=== PATIENT | male | born 1960 | race Caucasian/White ===

== ENCOUNTER 2024-06-08 08:44 | Emergency (ER) | payer BC, OTHER ==
[~2024-06-08] VITALS: Ht 175.3 cm; Wt 94.1 kg
[2024-06-08] MEDS ORDERED: TRIMETHOPRIM/SULFAMETHOXAZOLE 1 EA TAB PO ONE (09:30)
[2024-06-08] MEDS ORDERED: DOXYCYCLINE HYCLATE 100 MG CAP PO ONE (09:30)
[2024-06-08] MEDS ORDERED: DIPHTH,PERTUSS(ACELL),TET VAC 0.5 ML SYRINGE IM ONE (09:30)
[2024-06-08] MEDS ORDERED: BREYNA 80-4.510.3 GM INH (10:03)
[2024-06-08] MEDS ORDERED: MONTELUKAST SOD10 MG PO (10:03)
[2024-06-08] MEDS ORDERED: LISINOPRIL-HCT1 EAC2 PO (10:03)
[2024-06-08] MEDS ORDERED: BACTRIM DS TAB1 EACH PO (10:59)
[2024-06-08] MEDS ORDERED: DOXYCYCLINE HY100 MG PO (10:59)
[2024-06-08 11:20] VITALS: BP 142/75
== END 2024-06-08 11:22 | disposition home or self-care (01) ==
LOC: ED 08:44
DX: L03.116 Cellulitis of left lower limb (principal); I10 Essential (primary) hypertension; Z79.899 Other long term (current) drug therapy
CPT/HCPCS: 90471; 90715; 93971; 99283-25; A9270

== ENCOUNTER 2024-06-10 14:43 | Emergency (ER) | payer BC, OTHER ==
[~2024-06-10] VITALS: Ht 175.3 cm; Wt 93.4 kg
[~2024-06-10 14:43] MED LIST: BACTRIM DS TAB1 EACH PO; BREYNA 80-4.510.3 GM INH; DOXYCYCLINE HY100 MG PO; LISINOPRIL-HCT1 EAC2 PO; MONTELUKAST SOD10 MG PO
--- OUTSIDE RECORDS SUMMARY | 2024-06-10 14:50 | XMS ---
PreManage Notification: MAIA PATTERSON Security Supervisor Drying Events No recent Security Events currently on file CRITERIA MET - [facility] - 2 Visits in 30 Days CARE PROVIDERS There are no care providers on record at this time. Ignacio has no Care Guidelines for this patient. John VISIT COUNT (12 MO.) 2 JERRY JosephJolietRudolph Sullivan ([facility]) TOTAL 3 NOTE: Visits indicate total known visits. ED/C VISIT TRACKING (12 MO.) 06/10/2024 14:44 JERRY [facility] [place] TYPE: Emergency COMPLAINT: - INFECTION FOLLOW UP 06/08/2024 08:44 JERRY [place] TYPE: Emergency COMPLAINT: - WOUND CHECK DIAGNOSES: - Cellulitis of left lower limb - Essential (primary) hypertension - Laceration without foreign body, left lower leg, initial encounter - Other halfway (current) drug therapy 04/27/2024 10:41 Keven ESPOSITO ([facility]) TYPE: Emergency DIAGNOSES: - Cellulitis of left lower limb - Cutaneous abscess of left lower limb - Leg Injury INPATIENT VISIT TRACKING (12 MO.) No inpatient visits to display in this time frame [email or web address]
[2024-06-10 15:13] VITALS: BP 145/78
== END 2024-06-10 15:13 | disposition home or self-care (01) ==
LOC: ED 14:43
DX: Z48.00 Encounter for change or removal of nonsurgical wound dressing (principal); I10 Essential (primary) hypertension; Z79.899 Other long term (current) drug therapy
CPT/HCPCS: 99282

== ENCOUNTER 2024-07-21 22:05 | Emergency (ER) | payer OTHER, BC ==
[~2024-07-21] VITALS: Ht 175.3 cm; Wt 97.0 kg
[2024-07-22 01:15] VITALS: BP 117/73
== END 2024-07-22 01:15 | disposition home or self-care (01) ==
LOC: ED 22:05
DX: S61.411A Laceration without foreign body of right hand, initial encounter (principal); W26.0XXA Contact with knife, initial encounter; Z81.1 Family history of alcohol abuse and dependence; Z88.1 Allergy status to other antibiotic agents; Z79.899 Other long term (current) drug therapy
CPT/HCPCS: 12002; 99282

== ENCOUNTER 2024-08-15 06:48 | Emergency (ER) | payer BC, OTHER ==
[~2024-08-15] VITALS: Ht 175.3 cm; Wt 89.8 kg
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
[2024-08-15] MEDS ORDERED: IRBESARTAN150 MG PO (06:59)
[2024-08-15] MEDS ORDERED: BACTRIM DS TAB1 EACH PO (07:07)
[2024-08-15] MEDS ORDERED: SILVER SULFADIAZINE 400 GM HOME.PACK TOP ONE (07:15)
[2024-08-15] MEDS ORDERED: DOXYCYCLINE HYCLATE 100 MG HOME.PACK PO ONE (07:15)
[2024-08-15] MEDS ORDERED: TRIMETHOPRIM/SULFAMETHOXAZOLE 1 EA HOME.PACK PO ONE (07:15)
[2024-08-15 07:27] VITALS: BP 152/83
== END 2024-08-15 07:27 | disposition home or self-care (01) ==
LOC: ED 06:48
DX: L27.0 Generalized skin eruption due to drugs and medicaments taken internally (principal); T36.1X5A Adverse effect of cephalosporins and other beta-lactam antibiotics, initial encounter; T36.8X5A Adverse effect of other systemic antibiotics, initial encounter; T49.0X5A Adverse effect of local antifungal, anti-infective and anti-inflammatory drugs, initial encounter; L03.113 Cellulitis of right upper limb; I10 Essential (primary) hypertension; Z88.1 Allergy status to other antibiotic agents; Z79.899 Other long term (current) drug therapy
CPT/HCPCS: 99282; A9270